=== PATIENT | female | born 1985 | race Caucasian/White ===

== ENCOUNTER 2017-12-29 06:54 | Day surgery (SDC) | payer OTHER ==
[~2017-12-29] VITALS: Ht 172.7 cm; Wt 68.0 kg
[2017-12-29 07:51] VITALS: BP 117/70
[2017-12-29 10:45] VITALS: BP 115/58
[2017-12-29 11:45] VITALS: BP 129/82
[2017-12-29 13:00] VITALS: BP 128/75
== END 2017-12-29 13:05 | disposition home or self-care (01) ==
LOC: SDC 06:54
DX: N84.1 Polyp of cervix uteri (principal); A63.0 Anogenital (venereal) warts; N87.9 Dysplasia of cervix uteri, unspecified; Z80.49 Family history of malignant neoplasm of other genital organs
CPT/HCPCS: 88305; 88307; J0171; J1100; J1885; J2405; J2710